=== PATIENT | male | born 1990 | race Caucasian/White ===

== ENCOUNTER 2025-01-11 10:39 | Inpatient (IN) ==
[2025-01-11 11:37] LABS: Basophils # (Auto) 0.03 K/mcL (0.00-0.30); Basophils % (Auto) 0.2 % (0.0-2.0); Eosinophils # (Auto) 0.06 K/mcL (0.00-0.70); Eosinophils % (Auto) 0.5 % (0.0-7.0); Hematocrit 36.4 % (40.1-51.0); Hemoglobin 13.1 g/dL (13.7-17.5); Lymphocytes # (Auto) 1.79 K/mcL (1.50-4.80); Lymphocytes % (Auto) 14.3 % (15.5-49.0); Mean Platelet Volume 10.5 fL (8.8-12.5); Monocytes # (Auto) 1.68 K/mcL (0.10-0.90); Monocytes % (Auto) 13.4 % (1.0-12.0); Neutrophils % (Auto) 71.4 % (38.0-78.0); Platelet Count 177 K/mcL (140-440); RBC 3.83 M/mcL (4.63-6.08); Red Cell Distribution Width 12.9 % (11.5-14.5); WBC 12.5 K/mcL (4.5-11.0)
[2025-01-11 12:02] LABS: ALT/SGPT 56 U/L (<40); AST/SGOT 198 U/L (<40); Albumin 2.8 gm/dL (3.2-5.2); Albumin/Globulin Ratio 0.7 (1.0-2.3); Alkaline Phosphatase 194 U/L (39-117); Bilirubin,Total 13.2 mg/dL (0.1-1.0); Blood Urea Nitrogen 12 mg/dL (6-20); Calcium 8.3 mg/dL (8.6-10.4); Carbon Dioxide 34 mmol/L (22-30); Chloride 74 mmol/L (96-108); Globulin 4.1 gm/dL (2.2-3.7); Glucose 82 mg/dL (70-105); Potassium 2.1 mmol/L (3.3-5.1); Sodium 119 mmol/L (133-145)
[2025-01-11 12:12] LABS: INR 1.9 (0.9-1.1); Prothrombin Time 23.3 sec (11.9-14.5)
[2025-01-11 12:14] LABS: Albumin 2.8 gm/dL (3.2-5.2)
[2025-01-11] MEDS: POTASSIUM CHLORIDE 20 MEQ in DEXTROSE 5% IN WATER 250 ML IV ONE (13:00)
[2025-01-11] MEDS: POTASSIUM CHLORIDE 20 MEQ TABLET PO ONE (13:00)
[2025-01-11] MEDS: ALBUMIN HUMAN 25 GM/100 ML BAG IV ONE (13:02)
[2025-01-11 13:09] LABS: Hepatitis A Antibody IgM Non-Reactive (Non-Reactive); Hepatitis B Surface Antigen Negative (Negative); Hepatitis C Virus Antibody Non-Reactive (Non-Reactive)
[2025-01-11 13:56] LABS: Alcohol, Blood < 10.1 mg/dL; Alcohol,Blood < 0.010 gm/dL (<0.010)
[2025-01-11 14:32] LABS: POC Calcium, Ionized 0.98 (1.16-1.32); POC Creatinine 1.1 (0.6-1.2); POC Potassium 2.7 (3.3-5.1)
[2025-01-11] MEDS: cefTRIAXone 2 GM in DEXTROSE 5% IN WATER 50 ML IV ONE (14:37)
[2025-01-11 14:50] LABS: Appearance,Urine Clear (Clear); Bacteria,Urine 0 /hpf (0); Bilirubin,Urine Negative (Negative); Color,Urine Yellow; Glucose,Urine (UA) Negative (Negative); Ketones,Urine Negative (Negative); Leukocyte Esterase,Urine Negative /uL (Negative); Nitrate,Urine Negative (Negative); Protein,Urine Negative (Negative); Specific Gravity,Urine 1.015 (1.000-1.035); Urine Blood Negative ery/mcL (Negative); Urine RBC 0 /hpf (0-3); Urine Squamous Epithelial Cell 0 /hpf (0-4); Urine WBC 1 /hpf (0-4); Urobilinogen,Urine Normal
[2025-01-11 15:31] LABS: Blood Urea Nitrogen 12 mg/dL (6-20); Calcium 8.2 mg/dL (8.6-10.4); Carbon Dioxide 32 mmol/L (22-30); Chloride 74 mmol/L (96-108); Glomerular Filtration Rate 87; Glucose 120 mg/dL (70-105); Potassium 2.8 mmol/L (3.3-5.1); Sodium 117 mmol/L (133-145)
[2025-01-11 16:12] LABS: Glucose,Peritoneal Fluid 127 mg/dL; LDH,Peritoneal Fluid 25 U/L; Total Protein,Peritoneal Fluid 0.4 gm/dL
[2025-01-11] MEDS ORDERED: oxyCODONE IR 5 MG TABLET PO PRN (16:17)
[2025-01-11] MEDS ORDERED: morphine 4 MG/ML VIAL IV PRN (16:41)
[2025-01-11] MEDS ORDERED: NALOXONE HCL 0.4 MG/ML VIAL IV PRN (16:41)
[2025-01-11] MEDS ORDERED: IPRATROPIUM/ALBUTEROL 3 ML AMPUL.NEB NEB PRN (16:41)
[2025-01-11 16:48] LABS: Thyroid Stimulating Hormone 0.98 uIU/mL (0.27-5.01)
[2025-01-11] MEDS: 0.9 % SODIUM CHLORIDE 1,000 ML IV SCH (16:48)
[2025-01-11 16:51] LABS: Mesothelial,Peritoneal Fluid 14 %; Monocyte,Peritoneal Fluid 60 %; Neutrophils,Peritoneal Fluid 3 %; Nucleated Cel,Peritoneal Fluid 53 /cumm; RBC,Peritoneal Fluid <50,000 /cumm
[2025-01-11] MEDS: POTASSIUM CHLORIDE 10 MEQ/100 ML BAG IV SCH (17:06)
[2025-01-11] MEDS: POTASSIUM CHLORIDE 20 MEQ TABLET PO SCH (17:07)
[2025-01-11] MEDS ORDERED: ONDANSETRON 4 MG ODT TABLET PO PRN (17:31)
[2025-01-11] MEDS ORDERED: ALBUTEROL SULFATE 60 PUFF INHALER INH PRN (17:34)
[2025-01-11] MEDS: PROPRANOLOL 10 MG TABLET PO SCH (21:27)
[2025-01-11] MEDS: LACTULOSE 20 GM/30 ML ORAL.SOL PO SCH (21:28)
[2025-01-11 22:11] LABS: Iron 104 ug/dL (61-157); TIBC Calculation 121 ug/dl (228-428); Transferrin % Saturation 86 % (20-50)
[2025-01-11] MEDS: 0.9 % SODIUM CHLORIDE 10 ML SYRINGE IV SCH (22:43)
[2025-01-12 01:17] LABS: Blood Urea Nitrogen 9 mg/dL (6-20); Calcium 7.8 mg/dL (8.6-10.4); Carbon Dioxide 31 mmol/L (22-30); Chloride 85 mmol/L (96-108); Glomerular Filtration Rate 111; Glucose 112 mg/dL (70-105); Potassium 3.7 mmol/L (3.3-5.1); Sodium 124 mmol/L (133-145)
[2025-01-12 06:23] LABS: Phosphorous 2.6 mg/dL (2.5-4.5)
[2025-01-12] MEDS: POTASSIUM CHLORIDE 40 MEQ in DEXTROSE 5% IN WATER 500 ML IV ONE (06:23)
[2025-01-12 06:41] LABS: Basophils # (Auto) 0.04 K/mcL (0.00-0.30); Basophils % (Auto) 0.4 % (0.0-2.0); Eosinophils # (Auto) 0.15 K/mcL (0.00-0.70); Eosinophils % (Auto) 1.6 % (0.0-7.0); Hematocrit 30.6 % (40.1-51.0); Lymphocytes # (Auto) 1.87 K/mcL (1.50-4.80); Lymphocytes % (Auto) 19.9 % (15.5-49.0); Mean Cell Volume 98.1 fL (80.0-100.0); Mean Corpuscular HGB Conc 35.9 g/dL (31.0-36.0); Mean Platelet Volume 11.2 fL (8.8-12.5); Monocytes # (Auto) 1.33 K/mcL (0.10-0.90); Monocytes % (Auto) 14.2 % (1.0-12.0); Neutrophils % (Auto) 63.5 % (38.0-78.0); Platelet Count 134 K/mcL (140-440); RBC 3.12 M/mcL (4.63-6.08); Red Cell Distribution Width 13.8 % (11.5-14.5); WBC 9.4 K/mcL (4.5-11.0)
[2025-01-12 06:42] LABS: Blood Urea Nitrogen 9 mg/dL (6-20); Calcium 7.9 mg/dL (8.6-10.4); Carbon Dioxide 30 mmol/L (22-30); Chloride 84 mmol/L (96-108); Glomerular Filtration Rate 117; Glucose 99 mg/dL (70-105); Potassium 3.7 mmol/L (3.3-5.1); Sodium 121 mmol/L (133-145)
[2025-01-12 08:55] LABS: Albumin 2.5 gm/dL (3.2-5.2)
[2025-01-12] MEDS ORDERED: cefTRIAXone 2 GM in DEXTROSE 5% IN WATER 50 ML IV SCH (09:00)
[2025-01-12] MEDS: FLUoxetine HCL 20 MG CAPSULE PO SCH (09:28)
[2025-01-12] MEDS: FOLIC ACID 1 MG TABLET PO SCH (09:28)
[2025-01-12] MEDS: PANTOPRAZOLE 40 MG TABLET PO SCH (09:29)
[2025-01-12] MEDS: ENOXAPARIN 40 MG/0.4 ML SYRINGE SQ SCH (09:29)
[2025-01-12] MEDS: ALBUMIN HUMAN 25 GM/100 ML BAG IV ONE (11:29)
[2025-01-12 12:42] LABS: Blood Urea Nitrogen 8 mg/dL (6-20); Calcium 8.2 mg/dL (8.6-10.4); Carbon Dioxide 30 mmol/L (22-30); Chloride 86 mmol/L (96-108); Glomerular Filtration Rate 111; Glucose 82 mg/dL (70-105); Potassium 3.9 mmol/L (3.3-5.1); Sodium 125 mmol/L (133-145)
[2025-01-12] MEDS: LORazepam 1 MG TABLET PO PRN (14:44)
[2025-01-12 18:32] LABS: Blood Urea Nitrogen 8 mg/dL (6-20); Calcium 8.2 mg/dL (8.6-10.4); Carbon Dioxide 27 mmol/L (22-30); Chloride 90 mmol/L (96-108); Glomerular Filtration Rate 111; Glucose 110 mg/dL (70-105); Potassium 3.4 mmol/L (3.3-5.1); Sodium 128 mmol/L (133-145)
[2025-01-12] MEDS: SODIUM CHLORIDE 1 GM TABLET PO SCH (20:58)
[2025-01-12] MEDS: ONDANSETRON 4 MG/2 ML VIAL IV PRN (23:55)
[2025-01-13 05:36] LABS: Basophils # (Auto) 0.03 K/mcL (0.00-0.30); Basophils % (Auto) 0.3 % (0.0-2.0); Eosinophils # (Auto) 0.16 K/mcL (0.00-0.70); Eosinophils % (Auto) 1.4 % (0.0-7.0); Hematocrit 32.5 % (40.1-51.0); Hemoglobin 10.9 g/dL (13.7-17.5); Lymphocytes # (Auto) 2.64 K/mcL (1.50-4.80); Lymphocytes % (Auto) 22.6 % (15.5-49.0); Mean Cell Volume 101.2 fL (80.0-100.0); Mean Corpuscular HGB Conc 33.5 g/dL (31.0-36.0); Mean Platelet Volume 10.3 fL (8.8-12.5); Monocytes # (Auto) 1.46 K/mcL (0.10-0.90); Monocytes % (Auto) 12.5 % (1.0-12.0); Neutrophils % (Auto) 62.3 % (38.0-78.0); Platelet Count 147 K/mcL (140-440); RBC 3.21 M/mcL (4.63-6.08); Red Cell Distribution Width 14.1 % (11.5-14.5); WBC 11.7 K/mcL (4.5-11.0)
[2025-01-13 06:15] LABS: ALT/SGPT 43 U/L (<40); AST/SGOT 131 U/L (<40); Albumin 2.8 gm/dL (3.2-5.2); Albumin/Globulin Ratio 0.9 (1.0-2.3); Alkaline Phosphatase 183 U/L (39-117); Bilirubin,Total 10.6 mg/dL (0.1-1.0); Blood Urea Nitrogen 8 mg/dL (6-20); Calcium 8.3 mg/dL (8.6-10.4); Carbon Dioxide 26 mmol/L (22-30); Chloride 90 mmol/L (96-108); Globulin 3.1 gm/dL (2.2-3.7); Glucose 88 mg/dL (70-105); Potassium 4.3 mmol/L (3.3-5.1); Sodium 124 mmol/L (133-145)
[2025-01-13] MEDS: LACTULOSE 20 GM/30 ML ORAL.SOL PO SCH (08:35)
[2025-01-13 17:25] LABS: Phosphorous 1.8 mg/dL (2.5-4.5)
== END 2025-01-13 17:33 | disposition home health service (06) | DRG 433 ==
LOC: ED 10:39 → ICU 16:38
PROVIDERS: ADMIT Internal Medicine; ATTEND Internal Medicine